=== PATIENT | male | born 1990 | race Caucasian/White ===

== ENCOUNTER 2017-11-01 13:14 | Emergency (ER) | payer SELFPAY ==
[2017-11-01] MEDS: LIDOCAINE 1%/EPI 30 ML INJ INJ (15:17)
[2017-11-01] MEDS: DIPHTH/TET/ACEL PERTUSS (ADULT) 0.5 ML VIAL IM* (15:28)
[2017-11-01] MEDS: HYDROCODONE/APAP (5/325) TAB PO (15:28)
== END 2017-11-01 17:30 | disposition home or self-care (01) ==
LOC: FTE 13:14
DX: S01.412A Laceration without foreign body of left cheek and temporomandibular area, initial encounter (principal); S01.511A Laceration without foreign body of lip, initial encounter; S61.216A Laceration without foreign body of right little finger without damage to nail, initial encounter; V89.2XXA Person injured in unspecified motor-vehicle accident, traffic, initial encounter
CPT/HCPCS: 12001; 70140; 73130-RT; 90715; 99284-25